=== PATIENT | female | born 1960 | race Caucasian/White ===

== ENCOUNTER 2017-08-08 14:56 | Emergency (ER) | payer BC ==
[~2017-08-08] VITALS: Ht 167.6 cm; Wt 113.4 kg
[~2017-08-08 14:56] MED LIST: AMLO5TAB4 PO; CETI10TA16 PO; DIPH25CA58 PO; DOXE50CA PO; EPIN0.153 IJ; ESOM20CA PO; LISI2.5T PO; ONDA4TAB10 PO; PHEN37.5 PO; PRED-220 PO; PRED50TA PO; RANI150T6 PO
--- NOTE | 2017-08-08 15:13 | RAD ---
Exam: AP portable chest. History: Chest pain. Comparison: 11/16/2016. Findings: The heart and mediastinal structures are within normal limits for size. Lungs are without infiltrate. No pneumothorax or pleural effusion is appreciated. Impression: 1. No acute cardiopulmonary process.
[2017-08-08] MEDS ORDERED: IV NORMAL SALINE 1,000ML 1,000 ML IV SCH (15:15)
[2017-08-08] MEDS ORDERED: 0.9 % SODIUM CHLORIDE 10 ML DISP.SYRIN. IV PRN (15:15)
--- NOTE | 2017-08-08 15:26 | PHYS DOC ---
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 On Sunday patient in for dental procedure and received a little Xanax and nitrous oxide to facilitate dental procedures. She was never given any other medications at the time but did last night experiencing chest tightness as well as some palpitations that began spontaneously while at rest. Patient says she did get mildly nauseous when she began to cry and mildly dizzy with the symptoms. She describes the chest discomfort as pressure across the center of her chest with no radiation to the back shoulder or arms or neck. She denies any loss of consciousness, denies any recent travel outside the country, swelling in her lower legs or change in medications. She's never had a PE or clot in her lower legs she's not cancer survivor. Patient denies any direct pressure or increased stress at home. Patient denies any nausea, vomiting, diarrhea at this time. Although when she does get scared and anxious she does become nauseated with her symptoms. She denies any change in UTI symptoms, hematuria or back pain. Differential diagnosis for chest pain: Pericarditis, myocarditis, endocarditis, pneumothorax, pneumonia, aortic dissection, esophageal spasm, esophagitis, peptic ulcer disease, acute coronary syndrome, mediastinitis, Boerhaave syndrome , musculoskeletal chest wall pain, costochondritis, intercostal strain, rib fracture, pulmonary contusion, pneumonitis, pleural effusion, pericardial effusion, pericardial tamponode, and pleurisy.l Review of Systems Review of Systems Constitutional: Denies fever or chills [] Eyes: Denies change in visual acuity, redness, or eye pain [] HENT: Denies nasal congestion or sore throat [] Respiratory: Denies cough but she did suffer from shortness of breath with the symptoms. Cardiovascular: No additional information not addressed in HPI [] GI: Denies abdominal pain, vomiting, bloody stools or diarrhea, patient significantly nauseated with symptoms of anxiety [] : Denies dysuria or hematuria [] Musculoskeletal: Denies back pain or joint pain [] Integument: Denies rash or skin lesions [] Neurologic: Denies headache, focal weakness or sensory changes [] Endocrine: Denies polyuria or polydipsia [] All other systems were reviewed and found to be within normal limits, except as documented in this note. Current Medications Current Medications Current Medications Medications (Trade) Dose Ordered Sig/Dre Start Time Stop Time Status Last Admin Dose Admin Aspirin (Children'S Aspirin) 324 mg 1X ONCE 08/08/17 15:30 08/08/17 15:31 Sodium Chloride (Normal Saline Flush) 10 ml QSHIFT PRN 08/08/17 15:15 Allergies Allergies Allergies Coded Allergies Type Severity Reaction Last Updated Verified Sulfa (Sulfonamide Antibiotics) Allergy Severe 11/16/16 Yes codeine Allergy Severe Itching 12/25/13 Yes promethazine Allergy Intermediate 12/25/13 Yes Physical Exam Physical Exam Other vital signs recorded on the chart patient noted to be hypertensive but not tachycardic not tachypnea or hypoxic. Constitutional: Well developed, well nourished, no acute distress, non-toxic appearance. Patient mildly anxious and teary-eyed when she describes her symptoms but easily consolable [] HENT: Normocephalic, atraumatic, bilateral external ears normal, oropharynx moist, no oral exudates, nose normal. [] Eyes: PERRLA, EOMI, conjunctiva normal, no discharge. [] Neck: Normal range of motion, no tenderness, supple, no stridor. No anterior lymphadenopathy noted[] Cardiovascular:Heart rate regular rhythm, no murmur [] Lungs & Thorax: Bilateral breath sounds clear to auscultation [] Abdomen: Bowel sounds normal, soft, no tenderness, no masses, no pulsatile masses. [] Skin: Warm, dry, no erythema, no rash. Patient is nondiaphoretic not pallorous[ ] Extremities: No tenderness, no cyanosis, no clubbing, ROM intact, no edema. No specific Homans sign [] Neurologic: Alert and oriented X 3, normal motor function, normal sensory function, no focal deficits noted. [] Psychologic: sHe is mildly anxious she is appropriate in her judgment is intact. EKG EKG []EKG read by me, and EKG 3 or 4 PM dosage heart rate of 99 sinus rhythm with occasional PVCs noted. Intervals 140 which is normal, QRS width of 76 which is normal, QTC is 341 which is normal. There is no ST segment or T-wave changes consistent with acute cord ischemia at this time. There is significant movement artifact also noted is an abnormal EKG Radiology/Procedures Radiology/Procedures [] IMAGING REPORT Signed PATIENT: GARRISON NEFF ACCOUNT: [id number] : 1960 LOCATION: ER AGE: 57 SEX: F EXAM STATUS: REG ER ORD. PHYSICIAN: MICHELLE CLIFTON MD REASON: chest pain elevated dimer PROCEDURE: CT ANGIOGRAPHY CHEST CT pulmonary angiogram with contrast History: Chest pain, elevated d-dimer. Comparison: None. Technique: Helical CT angiogram of the chest with attention to the pulmonary arteries was performed after the administration of intravenous contrast, 60 mL Omnipaque 300. Axial 2-D reconstructions were obtained. Coronal 3-D MIPS were also obtained. One or more of the following individualized dose reduction techniques were utilized for the study: Automated exposure control Adjustment of mA and/or kV according to patient's size Use of iterative reconstruction technique. Findings: Pulmonary arteries are adequately opacified. There is no evidence of pulmonary embolism. Visualized thyroid appears mildly heterogeneous. Trachea and mainstem bronchi appear patent. No mediastinal or hilar lymphadenopathy is seen. Heart and pericardium are unremarkable. Thoracic aorta is without evidence of dissection. Lungs demonstrate several small nonspecific soft tissue pulmonary nodules with the largest measuring 4 mm in right lower lobe adjacent to the fissure (axial image 68). Images of upper abdomen demonstrate cholecystectomy clips. Impression: 1. No evidence of pulmonary embolism. No acute abnormality identified in the chest. 2. Small nonspecific soft tissue pulmonary nodules are seen within the lungs measuring up to 4 mm. If no risk factors for pulmonary malignancy, no follow-up is necessary. If risk factors, by Fleischner Society 2017 guidelines, consider follow-up chest CT without contrast in [address] [address] IMAGING REPORT Signed PATIENT: GARRISON NEFF ACCOUNT: [id number] : 1960 LOCATION: ER AGE: 57 SEX: F EXAM STATUS: REG ER ORD. PHYSICIAN: MICHELLE CLIFTON MD REASON: chest pain PROCEDURE: PORTABLE CHEST 1V Exam: AP portable chest. History: Chest pain. Comparison: 11/16/2016. Findings: The heart and mediastinal structures are within normal limits for size. Lungs are without infiltrate. No pneumothorax or pleural effusion is appreciated. Impression: 1. No acute cardiopulmonary process. DICTATED AND SIGNED BY: COREY GARCIA MD DATE: 08/08/17 1510 CC: MICHELLE CLIFTON MD; MARYELLEN GONZALEZ DO ~ Course & Med Decision Making Course & Med Decision Making Pertinent Labs and Imaging studies reviewed. (See chart for details) []Patient presents with palpitations and chest discomfort that began spontaneously last evening. She does have a history of SVT and she seems to the palpitations and the chest pain or socially with this particular event. She's had prior ablation but just recently had a dental procedure on her mouth requiring Xanax and nitrous oxide. She does not recall any lower leg edema pain or swelling. She denies any shortness of breath at this time and is symptom- free at this time. Patient to EKG done on arrival is not significant other than for occasional PVCs. Patient will have a CBC, CMP, troponin, proBNP, d-dimer and appropriate Cardiac lab work completed. In the interim she will received an aspirin and was offered a benzodiazepine for anxiety but she refused. During the course patient valuations patient's CBC, CMP, proBNP d-dimer troponin were all returned. Only positive finding was positive d-dimer. This is likely associated with a recent oral surgery she had completed earlier this week. Patient and the CT angios the chest completed that she was waiting a symptomatically here in the emergency department. Time is now 4:20 PM CTA chest return Patient tells me that their symptoms given during CC are improved. We reviewed labs and radiology reports with patient and any family at bedside. It demonstrates no acute pulmonary embolism or filling defect, there are small pulmonary nodules less than 4 mm in size but because she is not at risk for lung disease she is not a smoker there is no family history patient will be discharged with follow-up instructions to complete in the next year or 2. Time is now 5 PM. Patient is asymptomatic as she sits here I believe that although she has had symptoms since yesterday evening her chest pain does not demonstrate any signs of cardiac damage. This does not mean she does not have heart disease. History: She is heart score based on age and risk factors and troponin are two she is low risk and she can go home with follow-up with cardiology for her palpitations. Highly suspicious 2 points moderately suspicious 1. slightly suspicious 0 point EKG: ST segment depression 2. nonspecific repolarization disturbance 1. normal 0 point Age: Greater than 65 2 points, 65-45 1., less than 45 years old 0 points Risk factors:> 3 risk factors 2 points, 1-2 risk factors one point, no risk factors 0 point Troponin: > 2 times normal 2 points, 1-2 times normal 1., normal limits 0 point Total score: Score % pts MACE/n MACE Policy 0-3 32% 1.9% 0.05% Discharge 4-6 51% 413/3136 13% 1.3% Observation Risk management 7-10 17% 518/1045 50% 2.8% Observation Treatment, CAG My discharge plan Although you have low risk chest pain you May still have heart disease despite having an apparent negative workup today. I would advise that you follow-up with your primary care doctor this week to arrange follow-up with her chlorine cells operator. The chlorine cells operator will help stratify your risk for heart injury in the future. Follow up: In addition patient is asked to followup with their primary doctor, within a week for followup examination and to address patient's ongoing medical conditions. Patient is advised that in the Emergency Department primary complaints are addressed and only in light of known signs and symptoms. Patient should return immediately to the emergency department if new signs and symptoms develop or patient's condition worsens in any way. At time of discharge patient was in stable condition and had verbalized understanding of the discharge instructions. Dragon Disclaimer Dragon Disclaimer This electronic medical record was generated, in whole or in part, using a voice recognition dictation system. Departure Departure: Impression: Primary Impression: Hypertension Additional Impressions: Nausea and vomiting Palpitations Anxiety Disposition: HOME, SELF-CARE Condition: IMPROVED Referrals: MARYELLEN GONZALEZ DO (PCP) Patient Instructions: Anxiety and Panic Attacks, Hypertension, Nausea and Vomiting, Palpitations Additional Instructions: My discharge plan Although you have low risk chest pain you May still have heart disease despite having an apparent negative workup today. I would advise that you follow-up with your primary care doctor this week to arrange follow-up with her chlorine cells operator. The chlorine cells operator will help stratify your risk for heart injury in the future. Follow up: In addition patient is asked to followup with their primary doctor, within a week for followup examination and to address patient's ongoing medical conditions. Patient is advised that in the Emergency Department primary complaints are addressed and only in light of known signs and symptoms. Patient should return immediately to the emergency department if new signs and symptoms develop or patient's condition worsens in any way. At time of discharge patient was in stable condition and had verbalized understanding of the discharge instructions. Scripts Ondansetron (ZOFRAN ODT) 4 Mg Tab.rapdis 1 TAB SL Q8HRS, #15 TAB Prov: MICHELLE CLIFTON MD 08/08/17 Lorazepam (ATIVAN) 1 Mg Tablet 1 MG PO TID for 5 Days, #15 TAB Prov: MICHELLE CLIFTON MD 08/08/17 Problem Qualifiers MICHELLE CLIFTON MD Aug 08, 2017 15:25
[2017-08-08] MEDS ORDERED: ASPIRIN 81 MG TAB.CHEW PO ONE (15:30)
[2017-08-08 15:38] LABS: BASO # 0.1 x10^3/uL (0.0-0.2); BASO % 1 % (0-3); EOS # 0.4 x10^3/uL (0.0-0.7); EOS % 3 % (0-3); HEMATOCRIT 43.9 % (36.0-47.0); HEMOGLOBIN 14.6 g/dL (12.0-15.5); LYMPH % 27 % (24-48); MEAN CORPUSCULAR HEMOGLOBIN 29 pg (25-35); MEAN CORPUSCULAR HGB CONC 33 g/dL (31-37); MEAN CORPUSCULAR VOLUME 86 fL (79-100); MONO # 0.9 x10^3/uL (0.0-1.1); MONO % 8 % (0-9); NEUT # 6.7 x10^3uL (1.8-7.7); NEUT % 61 % (31-73); PLATELET COUNT 276 x10^3/uL (140-400)
[2017-08-08] MEDS ORDERED: LORazepam 2 MG/ML VIAL IV ONE (15:45)
[2017-08-08] MEDS ORDERED: ONDANSETRON PF 4 MG/2 ML VIAL. IV ONE (15:45)
[2017-08-08 16:00] LABS: ALBUMIN 3.5 g/dL (3.4-5.0); ALK PHOS 133 U/L (46-116); ALT (SGPT) 26 U/L (14-59); ANION GAP 8 (6-14); AST (SGOT) 24 U/L (15-37); BLOOD UREA NITROGEN 12 mg/dL (7-20); CALCIUM 8.8 mg/dL (8.5-10.1); CARBON DIOXIDE 29 mmol/L (21-32); CHLORIDE 104 mmol/L (98-107); CREATINE KINASE 60 U/L (26-192); DIRECT BILIRUBIN 0.1 mg/dL (0.0-0.2); GFR 56.7; GLUCOSE 137 mg/dL (70-99); LIPASE 108 U/L (73-393); MAGNESIUM 1.9 mg/dL (1.8-2.4); SODIUM 141 mmol/L (136-145); TOTAL BILIRUBIN 0.2 mg/dL (0.2-1.0); TOTAL PROTEIN 7.9 g/dL (6.4-8.2)
[2017-08-08] MEDS ORDERED: IOHEXOL 300 MG/ML 75 ML VIAL. IV ONE (16:30)
--- NOTE | 2017-08-08 16:44 | EKG ---
[address] [address] Test Date: 2017-08-08 Test Time: 15:04:21 Pat Name: GARRISON NEFF Department: Room: Gender: F Correspondence Specialist: PITA : 1960 Requested By: MICHELLE CLIFTON Order Number: [id number] Reading MD: Measurements Intervals [place] Rate: 99 P: 8 MN: 148 QRS: 48 QRSD: 76 T: 39 QT: 332 QTc: 431 Interpretive Statements SINUS RHYTHM VENTRICULAR PREMATURE COMPLEX(ES) QRS(T) CONTOUR ABNORMALITY CONSIDER ANTEROSEPTAL MYOCARDIAL DAMAGE ABNORMAL ECG RI6.01 No previous ECG available for comparison
[2017-08-08 16:45] VITALS: BP 156/67
--- NOTE | 2017-08-08 16:52 | RAD ---
CT pulmonary angiogram with contrast History: Chest pain, elevated d-dimer. Comparison: None. Technique: Helical CT angiogram of the chest with attention to the pulmonary arteries was performed after the administration of intravenous contrast, 60 mL Omnipaque 300. Axial 2-D reconstructions were obtained. Coronal 3-D MIPS were also obtained. One or more of the following individualized dose reduction techniques were utilized for the study: Automated exposure control Adjustment of mA and/or kV according to patient's size Use of iterative reconstruction technique. Findings: Pulmonary arteries are adequately opacified. There is no evidence of pulmonary embolism. Visualized thyroid appears mildly heterogeneous. Trachea and mainstem bronchi appear patent. No mediastinal or hilar lymphadenopathy is seen. Heart and pericardium are unremarkable. Thoracic aorta is without evidence of dissection. Lungs demonstrate several small nonspecific soft tissue pulmonary nodules with the largest measuring 4 mm in right lower lobe adjacent to the fissure (axial image 68). Images of upper abdomen demonstrate cholecystectomy clips. Impression: 1. No evidence of pulmonary embolism. No acute abnormality identified in the chest. 2. Small nonspecific soft tissue pulmonary nodules are seen within the lungs measuring up to 4 mm. If no risk factors for pulmonary malignancy, no follow-up is necessary. If risk factors, by Fleischner Society 2017 guidelines, consider follow-up chest CT without contrast in 12 months.
[2017-08-08 16:57] LABS: BACTERIA,URINE MOD /HPF (0-FEW); BILIRUBIN,URINE NEG (NEG); CLARITY,URINE HAZY; COLOR,URINE YELLOW; GLUCOSE,URINE NEG (NEG); NITRITE,URINE NEG (NEG); RBC,URINE OCC /HPF (0-2); UROBILINOGEN,URINE 0.2 mg/dL (0.2 mg/dL); WBC,URINE OCC /HPF (0-4)
[2017-08-08 16:58] LABS: SQUAMOUS EPITHELIAL CELL,UR MANY /LPF
[2017-08-08] MEDS ORDERED: LORA-434 PO (17:03)
[2017-08-08] MEDS ORDERED: ONDA4TAB10 SL (17:03)
== END 2017-08-08 17:12 | disposition home or self-care (01) ==
LOC: ER 14:56
DX: I10 Essential (primary) hypertension (principal); F41.9 Anxiety disorder, unspecified; R11.2 Nausea with vomiting, unspecified; F32.9 Major depressive disorder, single episode, unspecified; Z88.2 Allergy status to sulfonamides; Z88.5 Allergy status to narcotic agent; Z88.8 Allergy status to other drugs, medicaments and biological substances
CPT/HCPCS: 36415; 71045; 71275; 80048; 80076; 81001; 82553; 83690; 83735; 83880; 84443; 84484; 85025; 85379; 87086; 93005; 96361; 96374; 96375; 99285; J2060; J2405; Q9967; J7030

== ENCOUNTER 2019-11-28 22:54 | Emergency (ER) | payer BC ==
[~2019-11-28] VITALS: Ht 167.6 cm; Wt 121.5 kg
[~2019-11-28 22:54] MED LIST changes: +LORA-254 PO; +ONDA4TAB10 SL; +RANI-376 PO; -RANI150T6 PO
[2019-11-28 23:00] VITALS: BP 117/68
--- NOTE | 2019-11-28 23:07 | PHYS DOC ---
Past History Past Medical History: Other Past Surgical History: Other Additional Past Surgical Histo: prior cardiac ablation for SVT Smoking: Non-smoker Alcohol Use: None Drug Use: None General Adult HPI: HPI: "..I get these rashes...they don't know why... I ve been tested before...no changes in meds... soaps, foods.. I do get allergic to lot of out door stuff.. but I ve been in side today...." Patient is a 59 year old female who presents with above hx and complaints of a extensive erythemic, hives on her entire body. Patient states she has had this presentations many times and the only thing that are helped is a shot of steroids. Patient has taken Benadryl at home as well as her Nexium. No recent specific ill contacts. No travel outside the [place] area recently,. The patient was was in [facility] in April last year. Patient denies any changes in soaps, foods, or meds. Patient normally follows with Dr. Concepcion. Patient does have a history of elevated cholesterol. Review of Systems: Review of Systems: Constitutional: Denies fever or chills Eyes: Denies change in visual acuity HENT: Denies nasal congestion or sore throat Respiratory: Denies cough or shortness of breath Cardiovascular: Denies chest pain or edema GI: Denies abdominal pain, nausea, vomiting, bloody stools or diarrhea : Denies dysuria Musculoskeletal: Denies back pain or joint pain Integument: Complains of rash Neurologic: Denies headache, focal weakness or sensory changes Endocrine: Denies polyuria or polydipsia Lymphatic: Denies swollen glands Psychiatric: Denies depression or anxiety Heart Score: Risk Factors: Risk Factors: DM, Current or recent (<one month) smoker, HTN, HLP, family history of CAD, obesity. Risk Scores: Score 0 - 3: 2.5% MACE over next 6 weeks - Discharge Home Score 4 - 6: 20.3% MACE over next 6 weeks - Admit for Clinical Observation Score 7 - 10: 72.7% MACE over next 6 weeks - Early Invasive Strategies Family History: Family History: Noncontributory to presentation Current Medications: Current Meds: See nursing for home meds Allergies: Allergies: Allergies Coded Allergies Type Severity Reaction Last Updated Verified Sulfa (Sulfonamide Antibiotics) Allergy Severe 5/11/17 Yes codeine Allergy Severe Itching 12/25/13 Yes promethazine Allergy Intermediate 12/25/13 Yes Physical Exam: PE: Constitutional: Moderate acute distress, non-toxic appearance. [] HENT: Normocephalic, atraumatic, bilateral external ears normal, oropharynx moist, no oral exudates, nose normal. [] Eyes: PERRLA, EOMI, conjunctiva normal, no discharge. [] Neck: Normal range of motion, no tenderness, supple, no stridor. [] Cardiovascular:Heart rate regular rhythm, no murmur [] Lungs & Thorax: Bilateral breath sounds equal at apex with few scattered wheezes on auscultation [] Abdomen: Bowel sounds normal, soft, no tenderness, no masses, no pulsatile masses. Old surgery scars. Obese. Skin: Warm, dry, no erythema, extensive rash from head to toe. Mild trauma causes increase in rash. Back: No tenderness, no CVA tenderness. [] Extremities: No tenderness, no cyanosis, no clubbing, ROM intact, no edema. Bilateral knee scars Neurologic: Alert and oriented X 3, normal motor function, normal sensory function, no focal deficits noted. [] Psychologic: Affect anxious l, judgement normal, mood normal. [] EKG: EKG: [] Radiology/Procedures: Radiology/Procedures: [] Course & Med Decision Making: Course & Med Decision Making Pertinent Labs and Imaging studies reviewed. (See chart for details) \\Patient take prednisone 50 mg daily for 5 days. Patient take Nexium or Pepcid 20 mg 2 x a day. Patient use MDI 2 puffs 4 times a day. Patient follow-up primary care. Patient return if any concerns. 1. Rash-appears to be hives or angioedema-like ( no respiratory stridor) [] Dragon Disclaimer: Dragon Disclaimer: This electronic medical record was generated, in whole or in part, using a voice recognition dictation system. Departure Departure: Disposition: 01 HOME/RESIDENCE PRIOR TO ADM Condition: STABLE Referrals: MURALI WALLACE PAC (PCP) Scripts Prednisone (PREDNISONE) 50 Mg Tablet 50 MG PO DAILY for allergy for 5 Days, #5 TAB Prov: FERNANDO CURRAN MD 11/28/19 Prednisone (PREDNISONE) 50 Mg Tablet 50 MG PO DAILY for alergy for 5 Days, #5 TAB Prov: FERNANDO CURRAN MD 11/28/19 Sarika Disclaimer This chart was dictated in whole or in part using Voice Recognition software in a busy, high-work load, and often noisy Emergency Department environment. It may contain unintended and wholly unrecognized errors or omissions. Dragon Disclaimer This chart was dictated in whole or in part using Voice Recognition software in a busy, high-work load, and often noisy Emergency Department environment. It may contain unintended and wholly unrecognized errors or omissions. Dragon Disclaimer This chart was dictated in whole or in part using Voice Recognition software in a busy, high-work load, and often noisy Emergency Department environment. It may contain unintended and wholly unrecognized errors or omissions. FERNANDO CURRAN MD November 28, 2019 23:07
[2019-11-28] MEDS ORDERED: LORA10CA PO (23:19)
[2019-11-28] MEDS ORDERED: ESCITALOPRAM OX10 MG PO (23:19)
[2019-11-28] MEDS ORDERED: MONT10TA80 PO (23:19)
[2019-11-28] MEDS ORDERED: METO25TA4 PO (23:19)
[2019-11-28] MEDS ORDERED: PRED50TA PO ×2 (23:26→23:27)
[2019-11-28] MEDS ORDERED: FAMOTIDINE 20 MG TABLET PO ONE (23:45)
[2019-11-28] MEDS ORDERED: ALBUTEROL SULFATE 8GM INHALER. INH ONE (23:45)
[2019-11-28] MEDS ORDERED: methylPREDNISolone ACETATE 40 MG/ML VIAL. IM ONE (23:45)
== END 2019-11-28 23:53 | disposition home or self-care (01) ==
LOC: ER 22:54
DX: R21 Rash and other nonspecific skin eruption (principal); Z88.2 Allergy status to sulfonamides; Z88.5 Allergy status to narcotic agent; Z88.8 Allergy status to other drugs, medicaments and biological substances
CPT/HCPCS: 96372; 99283; J1030